=== PATIENT | male | born 1960 | race African-American/Black ===

== ENCOUNTER 2017-11-28 14:51 | Emergency (ER) | payer BC ==
--- NOTE | 2017-11-28 15:31 | CT ---
NONCONTRAST CT HEAD: Date: 11-28-17 History: Weakness. Co-worker noticed patient dragging right leg. This has been occurring intermittent ly for four days. Weakness in right arm for six hours. Comparison: 09-21-11 FINDINGS: There is a small low density focus seen within the right thalamus suggesting a lacunar infarction of indeterminate age. This was not seen on prior study in 2011. There is no evidence of an acute cortica l infarction, hemorrhage, mass effect, or midline shift. Ventricular system is normal in size, shape, and position. Limited visualized paranasal sinuses and mastoid air cells are clear. Visualized humberto rial structures have a normal appearance. IMPRESSION: 1. 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 No acute cortical infarction is seen, and there is no evidence of a hemorrhage. 2. Above findings discussed with Dr. Mejia in the Emergency Department on 11-28-17 at 1516 hours. POS: [facility]
[2017-11-28 15:53] LABS: Prothrombin Time 13.1 SEC (12.0-14.7)
[2017-11-28 15:54] LABS: PTT 29.9 SEC (22.9-36.1)
[2017-11-28 16:00] LABS: ALT (SGPT) 18 U/L (8-55); AST (SGOT) 23 U/L (5-34); Albumin 4.1 g/dL (3.5-5.0); Alkaline Phosphatase 82 U/L (40-150); Anion Gap 13 mmol/L (10-20); BUN (Urea Nitrogen) 16 mg/dL (8.4-25.7); Bilirubin, Total 0.7 mg/dL (0.2-1.2); CK (CPK) 253 U/L (30-200); Calc. Creatinine Clearance 0 mL/min (70-130); Calcium 10.1 mg/dL (7.8-10.44); Carbon Dioxide 23 mmol/L (22-29); Chloride 108 mmol/L (98-107); Estimated GFR-MDRD Greater than 90; Globulin 2.4 g/dL (2.4-3.5); Glucose 140 mg/dL (70-105); Potassium 3.6 mmol/L (3.5-5.1); Protein, Total 6.5 g/dL (6.0-8.3); Sodium 140 mmol/L (136-145)
[2017-11-28 16:03] LABS: CKMB 2.3 ng/mL (0-6.6); Troponin I Less than 0.010 ng/mL (< 0.028)
[2017-11-28 16:32] LABS: #Basophils 0.1 thou/uL (0.0-0.2); #Eosinphils 0.2 thou/uL (0.0-0.7); #Lymphocytes 1.3 thou/uL (1.20-3.40); #Monocytes 0.3 thou/uL (0.11-0.59); #Neutrophils 2.8 thou/uL (1.40-6.50); %Basophils 1.4 % (0.0-1.0); %Eosinophils 3.7 % (0.0-10.0); %Lymphocytes 27.7 % (21.0-51.0); %Monocytes 6.4 % (0.0-10.0); %Neutrophils 60.8 % (42.0-75.0); Mean Corpuscular HGB CONC 31.2 g/dL (32.0-36.0); Mean Corpuscular Hemoglobin 28.3 pg (27.0-31.0); Mean Corpuscular Volume 90.6 fL (78.0-98.0); Mean Platelet Volume 7.8 fL (7.4-10.4); Platelet Count 269 thou/uL (130-400); RBC Distribution Width 12.4 % (11.5-14.5); White Blood Cell (WBC) Count 4.6 thou/uL (4.8-10.8)
[2017-11-28 16:33] LABS: PLT Morphology Comment Appears Adequate; RBC Morphology Normal
--- NOTE | 2017-11-28 18:08 | RAD ---
PORTABLE AP CHEST X-RAY: 11/28/2017 HISTORY: Stroke alert. Right-sided weakness. COMPARISON: 09/21/2011 FINDINGS: The cardiac silhouette and pulmonary vasculature are within normal limits. Again noted is evidence o f prior granulomatous disease with calcified left hilar lymph nodes and calcified granuloma in the le ft lung base. The lungs are otherwise clear. There has been no interval change from the prior exam. IMPRESSION: No acute cardiopulmonary process. POS: [facility]
== END 2017-11-28 16:29 | disposition short-term general hospital (02) ==
LOC: NAV ERS 14:51
DX: I63.9 Cerebral infarction, unspecified (principal); E78.5 Hyperlipidemia, unspecified; I10 Essential (primary) hypertension; F17.210 Nicotine dependence, cigarettes, uncomplicated; Z79.82 Long term (current) use of aspirin; Z79.899 Other long term (current) drug therapy
CPT/HCPCS: 36416; 70450; 71045; 80053; 82550; 82553; 84484; 85025; 85610; 85730; 93005; 94760; 36415-59

== ENCOUNTER 2018-05-22 08:45 | Emergency (ER) | payer BC, SELFPAY ==
[2018-05-22 09:44] LABS: PTT 30.2 SEC (22.9-36.1)
[2018-05-22 09:53] LABS: ALT (SGPT) 25 U/L (8-55); AST (SGOT) 26 U/L (5-34); Albumin 4.1 g/dL (3.5-5.0); Alkaline Phosphatase 114 U/L (40-150); Anion Gap 14 mmol/L (10-20); BUN (Urea Nitrogen) 14 mg/dL (8.4-25.7); Bilirubin, Total 0.6 mg/dL (0.2-1.2); CK (CPK) 191 U/L (30-200); Calc. Creatinine Clearance 0 mL/min (70-130); Calcium 9.7 mg/dL (7.8-10.44); Carbon Dioxide 26 mmol/L (22-29); Chloride 104 mmol/L (98-107); Estimated GFR-MDRD Greater than 90; Globulin 2.6 g/dL (2.4-3.5); Glucose 130 mg/dL (70-105); Potassium 3.9 mmol/L (3.5-5.1); Protein, Total 6.7 g/dL (6.0-8.3); Sodium 140 mmol/L (136-145)
[2018-05-22 10:03] LABS: Hemoglobin 13.4 g/dL (14.0-18.0); Mean Corpuscular HGB CONC 30.1 g/dL (32.0-36.0); Mean Corpuscular Hemoglobin 26.5 pg (27.0-31.0); Platelet Count 260 thou/uL (130-400); RBC Distribution Width 12.9 % (11.5-14.5); Red Blood Cell (RBC) Count 5.07 mill/uL (4.70-6.10); White Blood Cell (WBC) Count 3.9 thou/uL (4.8-10.8)
[2018-05-22 10:05] LABS: Lymphocytes 29 % (21-51); MDiff Complete? YES; Monocytes 18 % (0-10); Neutrophil 53 % (42-75); Platelet Morphology Comment Appears Adequate
--- NOTE | 2018-05-22 10:21 | CT ---
CT BRAIN WITHOUT CONTRAST: Date: 05/22/18 HISTORY: Altered mental status. FINDINGS: Comparison made with exam of 11/28/17. No evidence of acute infarct, hemorrhage, midline shift, or abnormal extra-axial fluid collections ar e seen. The ventricular size is normal and the basilar cisterns are patent. Old lacunar infarcts in t he right thalamus and the left periventricular white matter/basal ganglia are again seen. The bony ca lvarium is intact. The visualized paranasal sinuses and mastoid air cells are well aerated. IMPRESSION: No CT evidence of acute intracranial process. POS: [facility]
== END 2018-05-22 10:31 | disposition home or self-care (01) ==
LOC: NAV ERS 08:45
DX: R20.2 Paresthesia of skin (principal); E78.5 Hyperlipidemia, unspecified; I10 Essential (primary) hypertension; Z86.73 Personal history of transient ischemic attack (TIA), and cerebral infarction without residual deficits; Z87.891 Personal history of nicotine dependence; Z79.82 Long term (current) use of aspirin; Z79.899 Other long term (current) drug therapy
CPT/HCPCS: 70450; 80053; 82550; 84484; 85025; 85610; 85730; 93005

== ENCOUNTER 2018-10-25 15:09 | Outpatient (CLI) | payer BC ==
--- NOTE | 2018-10-25 15:36 | RAD ---
FRONTAL VIEW CHEST: 10/25/18 COMPARISON: 10/04/18 INDICATION: Hemoptysis. FINDINGS: There are granulomatous calcifications of the left perihilar region and inferior left lung again demo nstrated. Lungs are hyperinflated. Cardiac silhouette is stable. No effusion or pneumothorax. IMPRESSION: Stable chest. POS: [facility]
== END 2018-10-25 15:10 | disposition home or self-care (01) ==
LOC: NAV RAD 15:09
PROVIDERS: ATTEND Internal Medicine
DX: R05 Cough (principal)
CPT/HCPCS: 71046

== ENCOUNTER 2018-11-07 08:26 | Emergency (ER) | payer BC ==
[2018-11-07 09:08] LABS: #Basophils 0.1 thou/uL (0.0-0.2); #Eosinphils 0.2 thou/uL (0.0-0.7); #Lymphocytes 1.3 thou/uL (1.20-3.40); #Monocytes 0.5 thou/uL (0.11-0.59); #Neutrophils 1.6 thou/uL (1.40-6.50); %Basophils 1.9 % (0.0-1.0); %Eosinophils 4.5 % (0.0-10.0); %Lymphocytes 36.9 % (21.0-51.0); %Monocytes 13.3 % (0.0-10.0); %Neutrophils 43.5 % (42.0-75.0); Mean Corpuscular HGB CONC 31.6 g/dL (32.0-36.0); Mean Corpuscular Hemoglobin 27.1 pg (27.0-31.0); Mean Corpuscular Volume 85.9 fL (78.0-98.0); Mean Platelet Volume 7.8 fL (7.4-10.4); Platelet Count 223 thou/uL (130-400); RBC Distribution Width 13.3 % (11.5-14.5); Red Blood Cell (RBC) Count 4.42 mill/uL (4.70-6.10); White Blood Cell (WBC) Count 3.6 thou/uL (4.8-10.8)
--- NOTE | 2018-11-07 09:17 | RAD ---
Portable upright frontal chest radiograph: 11/07/2018 COMPARISON: 10/04/2018 HISTORY: Chest pain and abdominal tightness FINDINGS: Stable granuloma in the left lung base. Stable calcified lymph node in the left perihilar r egion. No pneumothorax or pleural fluid. No focal consolidation or alveolar edema. There is mild increased linear interstitial density and pulmonary hyperinflation, stable. IMPRESSION: Stable appearance of the chest as detailed above.
[2018-11-07 09:48] LABS: AST (SGOT) 34 U/L (5-34); Alkaline Phosphatase 80 U/L (40-150); Anion Gap 14 mmol/L (10-20); BUN (Urea Nitrogen) 15 mg/dL (8.4-25.7); Bilirubin, Total 0.7 mg/dL (0.2-1.2); CK (CPK) 143 U/L (30-200); Calc. Creatinine Clearance 0 mL/min (70-130); Calcium 9.1 mg/dL (7.8-10.44); Carbon Dioxide 22 mmol/L (22-29); Chloride 106 mmol/L (98-107); Estimated GFR-MDRD Greater than 90; Globulin 2.4 g/dL (2.4-3.5); Glucose 98 mg/dL (70-105); Lipase 16 U/L (8-78); Protein, Total 6.4 g/dL (6.0-8.3); Sodium 138 mmol/L (136-145)
[2018-11-07 09:51] LABS: ALT (SGPT) 40 U/L (8-55)
== END 2018-11-07 10:10 | disposition home or self-care (01) ==
LOC: NAV ERS 08:26
DX: R10.12 Left upper quadrant pain (principal); E78.5 Hyperlipidemia, unspecified; E78.00 Pure hypercholesterolemia, unspecified; I10 Essential (primary) hypertension; Z86.73 Personal history of transient ischemic attack (TIA), and cerebral infarction without residual deficits; Z95.5 Presence of coronary angioplasty implant and graft; Z87.891 Personal history of nicotine dependence; Z79.82 Long term (current) use of aspirin; Z79.899 Other long term (current) drug therapy; Z79.01 Long term (current) use of anticoagulants
CPT/HCPCS: 71045; 80053; 82550; 83690; 84484; 85025; 93005

== ENCOUNTER 2020-02-20 07:56 | Emergency (ER) | payer BC ==
[2020-02-20] MEDS ORDERED: Lidocaine 1% (PF) 30 ML VIAL ONE (08:31)
[2020-02-20] MEDS ORDERED: Bacitracin 1 PK ONE (08:45)
== END 2020-02-20 08:55 | disposition home or self-care (01) ==
LOC: NAV ERS 07:56
DX: S61.211A Laceration without foreign body of left index finger without damage to nail, initial encounter (principal); E78.5 Hyperlipidemia, unspecified; E78.00 Pure hypercholesterolemia, unspecified; I10 Essential (primary) hypertension; Z87.891 Personal history of nicotine dependence; Z79.899 Other long term (current) drug therapy; Z79.82 Long term (current) use of aspirin; W26.0XXA Contact with knife, initial encounter
CPT/HCPCS: 12001; J2001

== ENCOUNTER 2020-02-29 09:46 | Emergency (ER) | payer BC | END 2020-02-29 10:10 | disposition home or self-care (01) | LOC: NAV ERS 09:46 | DX: S61.211D Laceration without foreign body of left index finger without damage to nail, subsequent encounter (principal); E78.5 Hyperlipidemia, unspecified; E78.00 Pure hypercholesterolemia, unspecified; I10 Essential (primary) hypertension; G45.9 Transient cerebral ischemic attack, unspecified; F17.210 Nicotine dependence, cigarettes, uncomplicated; Z79.82 Long term (current) use of aspirin; Z79.899 Other long term (current) drug therapy ==

== ENCOUNTER 2020-03-04 08:18 | Emergency (ER) | payer BC | END 2020-03-04 08:46 | disposition home or self-care (01) | LOC: NAV ERS 08:18 | DX: S61.211D Laceration without foreign body of left index finger without damage to nail, subsequent encounter (principal); E78.5 Hyperlipidemia, unspecified; I10 Essential (primary) hypertension; Z87.891 Personal history of nicotine dependence; Z79.899 Other long term (current) drug therapy; X58.XXXD Exposure to other specified factors, subsequent encounter | CPT/HCPCS: 99282 ==